=== PATIENT | female | born 1990 ===

== ENCOUNTER 2017-07-08 21:23 | Emergency (ER) | payer OTHER ==
[2017-07-08 21:42] VITALS: RESP 18
[2017-07-08] MEDS ORDERED: Albuterol 0.083% Inhal Sol (2.5 mg/3 mL) UD INH STA (22:21)
[2017-07-08] MEDS ORDERED: Albuterol 0.083% Inhal Sol (2.5 mg/3 mL) UD ONE ×2 (22:40→22:49)
[2017-07-08 22:46] LABS: SQUAMOUS EPITHIAL 3 /hpf (0-5); URINE BILIRUBIN NEGATIVE (NEGATIVE); URINE BLOOD NEGATIVE (NEGATIVE); URINE CLARITY Clear (Clear); URINE COLOR Yellow (YELLOW); URINE GLUCOSE (UA) NORMAL (Normal); URINE LEUKOCYTE ESTERASE NEG Leu/uL (Negative); URINE NITRATE NEGATIVE (NEGATIVE); URINE PROTEIN NEGATIVE (NEGATIVE); URINE UROBILINOGEN NORMAL mg/dL (0.2-1.0)
--- NOTE | 2017-07-08 23:18 | C.PDOC ---
History Of Present Illness 26 year old female who is 22 weeks with a Hx of asthma presents to the ER with a complaint of cough and subjective fever for the past 2 days, associated with chest tightness. Denies sore throat, nausea, vomiting, sick contact, or recent travel. Time Seen by Provider: 07/08/17 21:48 Chief Complaint (Nursing): Fever History Per: Patient History/Exam Limitations: no limitations Onset/Duration Of Symptoms: Days Current Symptoms Are (Timing): Still Present Location Of Pain: None Sick Contacts (Context): None Associated Symptoms: Fever (Subjective), Cough. denies: Sore Throat, Nausea, Vomiting Ear Symptoms: Bilateral: None Recent travel outside of the [place]: No Past Medical History Reviewed: Historical Data, Nursing Documentation, Vital Signs Vital Signs: Last Vital Signs Temp 98.9 F 07/08/17 23:32 Pulse 95 H 07/08/17 23:32 Resp 18 07/08/17 23:32 BP 124/71 07/08/17 23:32 Pulse Ox 100 07/09/17 00:02 - Medical History PMH: Asthma Family History: States: Unknown Family Hx - Social History Hx Alcohol Use: No Hx Substance Use: No - Immunization History Hx Tetanus Toxoid Vaccination: No Hx Influenza Vaccination: No Hx Pneumococcal Vaccination: No Review Of Systems Constitutional: Positive for: Fever (Subjective) Respiratory: Positive for: Cough, Other (Chest tightness) Gastrointestinal: Negative for: Nausea, Vomiting, Abdominal Pain Physical Exam - Physical Exam Appears: Non-toxic, No Acute Distress Skin: Normal Color, Warm, Dry Head: Atraumatic, Normacephalic Eye(s): bilateral: Normal Inspection Nose: Normal Oral Mucosa: Moist Throat: Normal, No Erythema, No Exudate Neck: Normal, Supple Chest: Symmetrical, No Tenderness Cardiovascular: Rhythm Regular Respiratory: Decreased Breath Sounds, No Rales, No Rhonchi, Wheezing (Scattered expiratory) Gastrointestinal/Abdominal: Normal Exam (gravid, Non tender) Neurological/Psych: Oriented x3, Normal Speech ED Course And Treatment O2 Sat by Pulse Oximetry: 100 (Room air) Pulse Ox Interpretation: Normal Progress Note: UA and flu swab ordered, results were negative. Albuterol nebulizer and prednisone administered. On reevaluation, patient is resting comfortably in the ER in no acute distress with clear breath sounds and good air entry. Will discharge home with Rx and instructions to follow up with PMD for further evaluation or return if symptoms worsen. 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 [Other] Disposition: HOME/ ROUTINE Disposition Time: 23:15 Condition: STABLE Additional Instructions: Please follow up with PMD Take meds as directed Return to ER if worse Prescriptions: Albuterol HFA [Ventolin HFA 90 mcg/actuation (8 g)] 2 puff IH [id number] #1 inhaler Albuterol 0.083% [Albuterol 0.083% Inhal Alva (2.5 mg/3 ml) UD] 2.5 mg IH TID # 100 neb Mask, Face [Nebulizer Aerosol Mask Adult] 1 dev XX PRN PRN #1 dev PRN Reason: Wheezing Nebulizer [Aerosol Therapy Nebulizer] 1 dev NEB PRN PRN #1 dev PRN Reason: Cough And Congestion predniSONE [Prednisone] 40 mg PO DAILY #10 tab Instructions: Upper Respiratory Infection (ED), Bronchospasm (ED) Forms: [employer] ([place]) - Clinical Impression Clinical Impression: Acute bronchospasm due to viral infection - PA / MICROGRINDER OPERATOR / Resident Statement MD/DO has reviewed & agrees with the documentation as recorded. - Scribe Statement The provider has reviewed the documentation as recorded by the Scribирина Stephens All medical record entries made by the Myahibирина were at my direction and personally dictated by me. I have reviewed the chart and agree that the record accurately reflects my personal performance of the history, physical exam, medical decision making, and the department course for this patient. I have also personally directed, reviewed, and agree with the discharge instructions and disposition.
[2017-07-08 23:33] VITALS: BP 124/71; PULSE 95; TEMP 98.9
[2017-07-08 23:56] VITALS: O2SAT 100
== END 2017-07-08 23:33 | disposition home or self-care (01) ==
LOC: SUPCPDRO 21:23 → C.ER 21:23
DX: J98.01 Acute bronchospasm (principal)